=== PATIENT | female | born 1960 | race African-American/Black ===

== ENCOUNTER → 2018-11-04 | Outpatient (CLI) | payer BC ==
[2015-08-31 11:00] VITALS: BP 130/72
[~2018-11-04] MED LIST: BRIM5DRO4 OP; DOCU-109 PO; LATA2.5D3 EACHEYE; LOSA1TAB19 PO; Oxycodone Hcl/Acetaminophen PO; SIMV40TA3 PO
--- NOTE | 2018-11-04 11:14 | KCIC ---
EXAM: CT Chest without IV contrast CLINICAL HISTORY: Lung nodule evaluation. History of tobacco use/smoking. COMPARISON: Chest radiograph 01/08/2018 TECHNIQUE: CT of the chest without intravenous contrast. Axial, coronal and sagittal reformatted images were generated. ---PQRS compliance statement - One or more of the following individualized dose reduction techniques were utilized for this study: 1. Automated exposure control 2. Adjustment of the mA and/or kV according to patient size 3. Use of iterative reconstruction technique--- FINDINGS: Lack of intravenous contrast limits evaluation of solid organs, vasculature, and lymph nodes. Chest: Heart is not enlarged. No pericardial effusion. Aortic root calcifications are seen. A 1.7 cm hypodense nodule seen in the inferior left thyroid lobe (image 23) and can be further assessed by ultrasound. Borderline prominent mediastinal lymph nodes are seen, not enlarged by size criteria. No hilar lymphadenopathy within the constraints of this noncontrast examination. No axillary lymphadenopathy. No pleural effusion or pneumothorax. A 4 mm right upper lobe lung nodule (image 33) is seen. Visualized Upper abdomen: Visualized upper abdomen is unremarkable. Bones: Degenerative changes of the spine are seen.. IMPRESSION: 1. 4 mm right upper lobe lung nodule is seen. Given history of smoking, follow-up in one year is recommended. 2. Hypodense left thyroid lobe nodule can be further assessed by ultrasound. Electronically signed by: Demetrio Mckeon MD (11/04/2018 11:10 AM) [id number]
--- NOTE | 2018-11-04 18:39 | KCIC ---
PELVIS W/TV Clinical Indication: Uterine fibroid. Patient states had CT scan at and they saw fibroids. Comparison: None. TECHNIQUE: Real-time ultrasound imaging of the pelvis using transabdominal and transvaginal window is performed. Findings: No pelvic free fluid is identified. The right and left ovary are not seen. Uterus measures 10.5 x 6.5 x 5.2 cm. Uterus is heterogeneous. There is a posterior mid uterine fibroid that is subserosal and measures 3.1 x 2.7 x 2.3 cm. There is a fibroid on the right anteriorly that appears subserosal and measures 3 x 2.5 x 3.1 cm. There is another fibroid adjacent to this fibroid that is subserosal and measures 1.6 x 2.4 x 1.5 cm. The endometrial stripe is normal measuring 1 mm. IMPRESSION: 1. Myomatous uterus. 2. Right and left ovary are not seen. 3. No pelvic free fluid. Electronically signed by: Frank Veliz MD (11/04/2018 6:35 PM) [id number]
== END | disposition home or self-care (01) ==
LOC: KCIC US 08:27
PROVIDERS: ATTEND Physician Assistant Surgical
DX: D25.2 Subserosal leiomyoma of uterus (principal); R91.1 Solitary pulmonary nodule; I70.0 Atherosclerosis of aorta; M47.814 Spondylosis without myelopathy or radiculopathy, thoracic region
CPT/HCPCS: 71250; 76830; 76856

== ENCOUNTER → 2020-01-06 | Outpatient (CLI) | payer BC ==
[2015-08-31 11:00] VITALS: BP 130/72
[~2020-01-06] MED LIST changes: +SIMV40TA18 PO; -SIMV40TA3 PO
--- NOTE | 2020-01-06 10:18 | KCIC ---
CT CHEST WO CONTRAST INDICATION: Pulmonary nodule. COMPARISON STUDY: 11/04/2018. TECHNIQUE: Unenhanced axial images were obtained through the lungs and upper abdomen. Coronal and sagittal multiplanar reconstructions were also obtained. PQRS compliance statement: One or more of the following individualized dose reduction techniques were utilized for this examination: 1. Automated exposure control 2. Adjustment of the mA and/or kV according to patient size 3. Use of iterative reconstruction technique FINDINGS: Lungs and Airways: No pulmonary mass or consolidation. Stable 0.4 cm right upper lobe nodule (series 6 image 39) Normal central airways. Pleura: The pleural spaces are normal. Heart and Mediastinum: Stable left thyroid nodule. No axillary or supraclavicular lymphadenopathy. No mediastinal, hilar or retrocrural lymphadenopathy. The heart and pericardium are within normal limits. The great vessels of the thorax are normal. Abdomen: The visualized abdominal organs demonstrate no abnormality. Bones and Soft Tissues: Degenerative changes of the spine. Right subscapularis intramuscular lipoma. IMPRESSION: Right upper lobe nodule measuring 0.4 cm demonstrates greater than 1 year stability and is probably benign. Electronically signed by: Taz Akhtar MD (01/06/2020 10:15 AM) [id number]
== END | disposition home or self-care (01) ==
LOC: KCIC CT 08:12
PROVIDERS: ATTEND Internal Medicine
DX: R91.1 Solitary pulmonary nodule (principal); E04.1 Nontoxic single thyroid nodule; I10 Essential (primary) hypertension; E11.9 Type 2 diabetes mellitus without complications; Z87.891 Personal history of nicotine dependence
CPT/HCPCS: 71250

== ENCOUNTER → 2021-01-03 | Outpatient (CLI) | payer BC ==
[2015-08-31 11:00] VITALS: BP 130/72
--- NOTE | 2021-01-03 09:06 | KCIC ---
CT THORAX WO INDICATION: PULMONARY NODULE. PRIOR CT CHEST WITHOUT 01/06/20. COMPARISON STUDY: 01/06/2020, 11/04/2018. TECHNIQUE: Unenhanced axial images were obtained through the lungs and upper abdomen. Coronal and sa gittal multiplanar reconstructions were also obtained. PQRS compliance statement: One or more of the following individualized dose reduction techniques were utilized for this examinat ion: 1. Automated exposure control 2. Adjustment of the mA and/or kV according to patient size 3. Use of iterative reconstruction technique FINDINGS: Lungs and Airways: No pulmonary mass or consolidation. Stable 0.4 cm right upper lobe nodule (series 3 image 26) Normal central airways. Pleura: The pleural spaces are normal. Heart and Mediastinum: Stable left thyroid nodule. No axillary or supraclavicular lymphadenopathy. No mediastinal, hilar or retrocrural lymphadenopathy. The heart and pericardium are within normal limit s. The great vessels of the thorax are normal. Abdomen: The visualized abdominal organs demonstrate no abnormality. Bones and Soft Tissues: Degenerative changes of the spine. Right subscapularis intramuscular lipoma. IMPRESSION: Right upper lobe nodule measuring 0.4 cm demonstrates greater than 2 years stability and is likely be nign. No pulmonary mass or thoracic lymphadenopathy. Electronically signed by: Taz Akhtar MD (01/03/2021 9:03 AM) [id number]
== END ==
LOC: KCIC CT 08:20
PROVIDERS: ATTEND Internal Medicine
DX: R91.1 Solitary pulmonary nodule (principal)
CPT/HCPCS: 71250